=== PATIENT | male | born 1930 | race Caucasian/White ===

== ENCOUNTER 2016-09-18 14:42 | Emergency (ER) | payer MEDICARE, OTHER ==
[2016-09-18 16:27] VITALS: BP 134/77
--- NOTE | 2016-09-18 17:40 | UC ---
Respiratory Complaint HPI - HPI Summary HPI Summary: 85 yo male with cough and wheeze x 2 1/2 weeks Hx DM HX COPD Hx pneumonia decreased energy and appetite Hx scar tissue RUL no CP using inhaler more - History of Current Complaint Chief Complaint: UCGeneralIllness Stated Complaint: CHEST CONGESTION, COUGH Time Seen by Provider: 09/18/16 17:00 Hx Obtained From: Patient Onset/Duration: Gradual Onset, Lasting Weeks Timing: Constant Severity Initially: Mild Severity Currently: Moderate Pain Intensity: 2 Pain Scale Used: 0-10 Numeric Character: Cough: Nonproductive Aggravating Factors: Nothing Alleviating Factors: Bronchodilator Associated Signs And Symptoms: Positive: Wheezing, Nasal Congestion, Sinus Discomfort - Allergies/Home Medications Allergies/Adverse Reactions: Allergies Allergy/AdvReac Type Severity Reaction Status Date / Time No Known Allergies Allergy Verified 09/18/16 16:19 Home Medications: Home Medications Budesonide/Formote 160/4.5(NF) [Symbicort 160/4.5 (NF)] 2 puff INH BID 09/18/16 [History Confirmed 09/18/16] Desonide 0.005% OINT(NF) 1 applic TOPICAL 09/18/16 [History] Docusate CAP* [Colace Cap*] 100 mg PO DAILY 09/18/16 [History Confirmed 09/18/16 ] Levothyroxine Sodium [Levoxyl] 112 mcg PO DAILY 09/18/16 [History Confirmed ] PMH/Surg Hx/FS Hx/Imm Hx Endocrine History Of: Reports: Diabetes, Thyroid Disease Cardiovascular History Of: Reports: Cardiac Disorders - 5 stents, Hypertension Denies: Pacemaker/ICD Respiratory History Of: Reports: COPD Denies: Asthma GI/ History Of: Denies: Ulcer - Surgical History Surgical History: Yes Surgery Procedure, Year, and Place: Neck surgery to remove skin lesion, hernia x4. - Family History Known Family History: Positive: None - reviewed & noncontributory, Hypertension - Social History Alcohol Use: Occasionally Substance Use Type: None Smoking Status (MU): Former Smoker Type: Cigarettes When Did the Patient Quit Smoking/Using Tobacco: 1993 - Immunization History Most Recent Influenza Vaccination: Season Review of Systems Constitutional: Negative Skin: Negative Eyes: Negative ENT: Negative Respiratory: Cough Cardiovascular: Negative Gastrointestinal: Negative Genitourinary: Negative Motor: Negative Neurovascular: Negative Musculoskeletal: Negative Neurological: Negative Psychological: Negative All Other Systems Reviewed And Are Negative: Yes Physical Exam Triage Information Reviewed: Yes Appearance: Well-Appearing, No Pain Distress Vital Signs: Initial Vital Signs Temp 97.4 F 09/18/16 16:20 Pulse 84 09/18/16 16:20 Resp 18 09/18/16 16:20 BP 134/77 09/18/16 16:20 Pulse Ox 97 09/18/16 16:20 Vital Signs Reviewed: Yes Eyes: Positive: Conjunctiva Clear ENT: Negative: Hearing grossly normal, Nasal congestion, Nasal drainage, Muffled /hoarse voice Neck: Positive: Supple, Nontender, No Lymphadenopathy Respiratory: Positive: No respiratory distress, No accessory muscle use, Crackles - right base, Wheezing Cardiovascular: Positive: RRR, No Murmur Musculoskeletal: Positive: ROM Intact, No Edema Neurological: Positive: Alert Skin Exam: Normal UC Diagnostic Evaluation - Laboratory O2 Sat by Pulse Oximetry: 97 - normal/not hypoxic Re-Evaluation - Re-Evaluation First Eval Re-Evaluation Time: 18:45 Change: Improved - decreased wheezes Respiratory Course/Dx - Course Course Of Treatment: [facility] He will follow up there - Differential Dx/Diagnosis Provider Diagnoses: acute bronchitis Discharge - Discharge Plan Condition: Stable Disposition: HOME Prescriptions: DOXYcycline CAP(*) [DOXYcycline 100MG CAP(*)] 100 mg PO BID #20 cap Patient Education Materials: Acute Bronchitis (ED) Referrals: Nataliia Valdez [Primary Care Provider] - 4 Days
[2016-09-18] MEDS ORDERED: Ipratropium 0.5MG/2.5ML NEB* 0.5 MG/2.5 ML NEB.SOLN INH ONE (17:41)
[2016-09-18] MEDS ORDERED: Albuterol 2.5 MG/3 ML NEB.SOL* (0.083%) INH ONE (17:41)
--- NOTE | 2016-09-18 17:54 | RAD ---
INDICATION: Cough and wheezing COMPARISON: Chest x-ray December 20, 2015; CT chest December 20, 2015 TECHNIQUE: PA and lateral dual-energy views were obtained. FINDINGS: Bones/Soft Tissues: There are no acute bony findings. Cardiomediastinal: The heart is normal in size. There is mild ectasia and uncoiling of the thoracic aorta. Lungs: The left lung is clear. There is hyperinflation. There is mild volume loss in the right with chronic change. There is new, mild, nodularity in the periphery of the right midlung field. Suggest follow-up imaging and/or CT imaging for further characterization. Pleura: Chronic pleural changes right hemithorax. No effusions Other: None IMPRESSION: CHRONIC CHANGES RIGHT HEMITHORAX WITH VOLUME LOSS. PROGRESSIVE NODULARITY RIGHT MIDLUNG FIELD. SUGGEST FOLLOW-UP IMAGING
== END 2016-09-18 18:59 | disposition home or self-care (01) ==
LOC: UCEAST 14:42
DX: J20.9 Acute bronchitis, unspecified (principal); Z87.891 Personal history of nicotine dependence
CPT/HCPCS: 71020; 99212; G0463; J7644

== ENCOUNTER 2017-12-12 10:52 | Emergency (ER) | payer MEDICARE ==
[2017-12-12 11:01] VITALS: BP 150/85
--- NOTE | 2017-12-12 12:52 | RAD ---
Indication: Cough, COPD and weakness. 2 views of the chest are reviewed. Hyperinflated lung colmenares are noted. Right upper lobe scarring is noted. This is unchanged from previous exam. No definite alveolar consolidation is noted. IMPRESSION: Scarring in the right upper lobe. COPD with interstitial fibrosis.
--- NOTE | 2017-12-15 14:47 | UC ---
Max Marques Jennifer scribed for Gabbie Carter MD on 12/12/17 at 1135 . Respiratory Complaint HPI - HPI Summary HPI Summary: The patient is an 86 year old male who presents with cough that began about three weeks ago and worsened this morning. The patients states that the family is getting over the flu and the patient has not seemed to recover from it. The shared four days of her Tamiflu treatment with him. When the patient initially had the flu, he had a head cold, body aches, and body sensitivity. However, this morning the patient could hardly walk due to weakness and complains of sore throat, phlegm, increased sleeping, shortness of breath, and chest heaviness, and he vomited once yesterday. He denies chest pain , headaches, and issues with eating or drinking. The patient adds that he usually uses Albuterol twice a day. Uses Symbicort twice daily. Has been out of Spiriva for the past several days. - History of Current Complaint Chief Complaint: UCRespiratory Stated Complaint: RESP COMPLAINT Time Seen by Provider: 12/12/17 11:24 Hx Obtained From: Patient, Family/Board Filler - , daughter Onset/Duration: Sudden Onset, Lasting Weeks - 3 weeks, Still Present Timing: Constant Severity Initially: Mild Severity Currently: None Pain Intensity: 0 Pain Scale Used: 0-10 Numeric Character: Cough: Productive Aggravating Factors: Nothing Alleviating Factors: Nothing Associated Signs And Symptoms: Positive: Negative - Chest pain - Allergies/Home Medications Allergies/Adverse Reactions: Allergies Allergy/AdvReac Type Severity Reaction Status Date / Time No Known Allergies Allergy Verified 12/12/17 11:01 PMH/Surg Hx/FS Hx/Imm Hx Endocrine History: Diabetes Respiratory History: COPD - Surgical History Surgical History: Yes Surgery Procedure, Year, and Place: Neck surgery to remove skin lesion, hernia x4. - Family History Known Family History: Positive: Hypertension - Social History Alcohol Use: Rare Substance Use Type: None Smoking Status (MU): Former Smoker Type: Cigarettes When Did the Patient Quit Smoking/Using Tobacco: 1993 - Immunization History Most Recent Influenza Vaccination: Season Review of Systems Constitutional: Negative - Problems with eating or drinking, Other - had a fall about 2 months ago, none recently. Skin: Negative Eyes: Negative ENT: Sore Throat Respiratory: Shortness Of Breath, Cough Cardiovascular: Negative - Chest pain, Other - Chest heaviness with coughing. History of CAD and stents, no recent angina. Gastrointestinal: Vomiting Genitourinary: Negative Motor: Negative Neurovascular: Negative Musculoskeletal: Myalgia - body aches and sensitivity Neurological: Weakness Psychological: Negative All Other Systems Reviewed And Are Negative: Yes Physical Exam Triage Information Reviewed: Yes Appearance: No Pain Distress, Ill-Appearing - looks chronically unwell. Vital Signs: Initial Vital Signs Temp 99.1 F 12/12/17 10:54 Pulse 85 12/12/17 10:54 Resp 18 12/12/17 10:54 BP 150/85 12/12/17 10:54 Pulse Ox 97 12/12/17 10:54 Eyes: Positive: Conjunctiva Clear ENT: Positive: Pharyngeal erythema Neck: Positive: Nontender, No Lymphadenopathy Respiratory: Positive: Decreased breath sounds - to both bases, prolonged expiration with coarse breath sounds. Cardiovascular: Positive: RRR, No Murmur Abdomen Description: Positive: Nontender, No Organomegaly, Soft Neurological: Positive: Alert, Muscle Tone Normal Psychological Exam: Normal Skin Exam: Normal UC Diagnostic Evaluation - Laboratory O2 Sat by Pulse Oximetry: 97 Diagnostic Studies Comment: Influenza negative. Chest xay with changes of COPD, no infiltrate per MH. Awaiting radiology read. Radiologist read SCR as changes of COPD Respiratory Course/Dx - Course Course Of Treatment: The patient is an 86 year old male who presents with cough that began about three weeks ago and worsened this morning. Pt medications reviewed this visit. BP noted and advised to follow up with PCP. Add antibiotic for exacerbation of COPD. - Differential Dx/Diagnosis Differential Diagnosis/HQI/PQRI: Exacerbation Of COPD, Influenza, Lower Resp Infection Provider Diagnoses: exacerbation of COPD Discharge - Sign-Out/Discharge Documenting (check all that apply): Discharge/Admit/Transfer - Discharge Plan Condition: Stable Disposition: HOME Prescriptions: Azithromyxin JOSSUE (NF) [Z-Jossue (Zithromax) 250 mg tabs #6] 2 tab PO .TODAY, THEN 1 DAILY #6 tab Patient Education Materials: COPD (Chronic Obstructive Pulmonary Disease) (ED) Referrals: Nataliia Valdez [Primary Care Provider] - Additional Instructions: Your blood pressure was elevated during todays visit; please follow up with your primary care provider within a week for further evaluation Begin course of azithromycin due to persistent cough and low grade fever. Resume Spiriva once available. - Billing Disposition and Condition Condition: STABLE Disposition: HOME The documentation as recorded by the Max sheets Jennifer accurately reflects the service I personally performed and the decisions made by me, Gabbie Carter MD.
== END 2017-12-12 12:34 | disposition home or self-care (01) ==
LOC: UCEAST 10:52
DX: J44.1 Chronic obstructive pulmonary disease with (acute) exacerbation (principal); E11.9 Type 2 diabetes mellitus without complications; Z79.84 Long term (current) use of oral hypoglycemic drugs; Z87.891 Personal history of nicotine dependence
CPT/HCPCS: 71046; 87502; 99212; G0463